=== PATIENT | male | born 1945 | race Caucasian/White ===

== ENCOUNTER → 2021-03-24 15:10 | Outpatient (BNVA) | payer OTHER, SELFPAY | PROVIDERS: PCP Family Medicine; Visit Provider Specialist | DX: G62.9 Polyneuropathy, unspecified (principal); R20.0 Anesthesia of skin; R20.2 Paresthesia of skin; G31.84 Mild cognitive impairment of uncertain or unknown etiology; G95.9 Disease of spinal cord, unspecified; M54.12 Radiculopathy, cervical region; M96.1 Postlaminectomy syndrome, not elsewhere classified; R26.9 Unspecified abnormalities of gait and mobility | CPT/HCPCS: 99205 ==

== ENCOUNTER 2021-04-26 12:53 | Outpatient (CLI) | payer OTHER, SELFPAY ==
--- NOTE | 2021-04-26 13:00 | MR_ITS ---
WS: [id number] MRI HEAD WITHOUT CONTRAST TECHNIQUE: Sagittal T1, T2 axial, T2 axial FLAIR, axial and coronal T1 images, axial susceptibility w eighted imaging, axial diffusion weighted images, and coronal T2 images were obtained. CLINICAL INFORMATION: G31.84 - Mild cognitive impairment, so stated COMPARISON: None. FINDINGS: No evidence of restricted diffusion to suggest acute ischemia. Ventricular system and basal cisterns are patent. Minimal small vessel changes. Moderate parenchymal volume loss. Normal posterior fossa. N ormal vascular flow voids at the skull base. No extra-axial fluid collections. No evidence of mass or mass effect. Mild mucosal thickening in the paranasal sinuses with polypoid mucosal thickening. Mast oid air cells are well aerated. No hemosiderin on susceptibly weighted images. Postoperative changes partially visualized in the uppe r cervical spine. Normal optic chiasm and pituitary infundibulum. Normal cavernous sinuses and Meckel's cave. Mild to m oderate symmetric atrophy temporal lobes and hippocampal formations. MR/MR head wo con* [id number] IMPRESSION: 1. No evidence of restricted diffusion to suggest acute ischemia. 2. Minimal small vessel changes. Moderate parenchymal volume loss. 3. No hemosiderin on susceptibly weighted images. 4. Polypoid mucosal thickening paranasal sinuses. Mastoid air cells are well a erated. 5. Gmey-ip-[id number] symmetric atrophy temporal lobes and hippocampal formation s. 6. No other significant findings.
--- NOTE | 2021-04-26 13:45 | MR_ITS ---
WS: [id number] MRI CERVICAL SPINE NONCONTRAST TECHNIQUE: Sagittal T1, T2 and STIR imaging. Axial T2, gradient, and fiesta imaging. CLINICAL INFORMATION: G95.9 - Disease of spinal cord, unspecified COMPARISON: MRI April 07, 2020 FINDINGS: Straightening of the normal cervical lordosis. Myelomalacia in the cervical cord at C3-C4. Spinal can al stenosis has been decompressed compared to the prior examination. Posterior lamina fusion C3-C6 wi th interconnecting rods. Disc desiccation worse at C3-C4 and C5-C6. C2-C3: Normal. C3-C4: Disc space narrowing. Mild left and no significant right foraminal narrowing. Spinal canal is patent. C4-C5: Osteophytic ridging. Spinal canal and foramen are patent. C5-C6: Disc osteophytic ridging. Mild bilateral foraminal narrowing. Mild facet arthropathy. Spinal c anal is patent. C6-C7: Disc osteophyte complex with endplate ridging. Moderate left and mild right bony foraminal roshni rowing. Spinal canal is patent. C7-T1: Mild disc bulging with osteophytic ridging. Moderate left and no significant right foraminal n arrowing. Spinal canal is patent. T2 hyperintense nodule within the right thyroid isthmus measuring 1 0 mm. Visualized brain stem structures: Normal. Prevertebral soft tissues: Normal. MR/MR cervical spin wo con* [id number] IMPRESSION: 1. Interval postoperative changes dorsal decompression with screw fixation and interconnecting rods C3-C6. Spinal canal has been decompressed. 2. No significant central canal stenosis. 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 3. Disc osteophyte complexes with endplate ridging C6-C7 and C7-T1 with modera te left foraminal narrowing at these levels. 4. Disc space narrowing worse at C3-C4 and C5-C6 with disc desiccation. 5. Mild bilateral C5-C6 bony foraminal narrowing.
== END 2021-04-26 12:54 | disposition home or self-care (01) ==
LOC: RADSHAW 12:57
PROVIDERS: PCP Family Medicine; Visit Provider Specialist
DX: M25.78 Osteophyte, vertebrae (principal); G95.89 Other specified diseases of spinal cord; G31.9 Degenerative disease of nervous system, unspecified
CPT/HCPCS: 70551; 72141

== ENCOUNTER → 2021-06-14 11:12 | Outpatient (BNVA) | payer OTHER, SELFPAY | PROVIDERS: PCP Family Medicine; Visit Provider Specialist | DX: G56.03 Carpal tunnel syndrome, bilateral upper limbs (principal); G95.9 Disease of spinal cord, unspecified; G30.9 Alzheimer's disease, unspecified; F02.80 Dementia in other diseases classified elsewhere, unspecified severity, without behavioral disturbance, psychotic disturbance, mood disturbance, and anxiety; R26.9 Unspecified abnormalities of gait and mobility | CPT/HCPCS: 95913; 96116; 99215 ==